=== PATIENT | male | born 1960 | race African-American/Black ===

== ENCOUNTER 2016-09-29 13:45 | Inpatient (IN) | payer OTHER ==
[2016-09-29 15:47] VITALS: BMI 23.3
--- NOTE | 2016-09-29 17:45 | HP ---
Admission ROS [facility] Chief Complaint: I WANT TO GO TO REHAB Allergies/Adverse Reactions: Allergies Allergy/AdvReac Type Severity Reaction Status Date / Time No Known Allergies Allergy Verified 09/29/16 17:28 History of Present Illness: 56 YEARS OLD MALE WITH LONG HISTORY OF ALCOHOL COCAINE NICOTINE DEPENDENCE HAS HYPERTENSION AND SCHIZOPHRENIA IS ADMITTED TO REHAB Exam Limitations: No Limitations - Ebola screening Have you traveled outside of the country in the last 21 days: No Have you had contact with anyone from an Ebola affected area: No Have you been sick,other than usual withdrawal symptoms: No Do you have a fever: No - Review of Systems Constitutional: Weight Stable EENT: reports: Dental Problems (MULTIPLE UPPER TEETH MISSING) Respiratory: reports: No Symptoms reported Cardiac: reports: No Symptoms Reported GI: reports: No Symptoms Reported : reports: No Symptoms Reported Musculoskeletal: reports: Back Pain Integumentary: reports: No Symptoms Reported Neuro: reports: No Symptoms reported Endocrine: reports: No Symptoms Reported Hematology: reports: No Symptoms Reported Psychiatric: reports: Judgement Intact, Orientated x3, other (SCHIZOPHRENIA) Other Systems: Reviewed and Negative Patient History - Patient Medical History Hx Anemia: No Hx Asthma: No Hx Chronic Obstructive Pulmonary Disease (COPD): No Hx Cancer: No Hx Cardiac Disorders: No Hx Congestive Heart Failure: No Hx Hypertension: Yes Hx Hypercholesterolemia: No Hx Pacemaker: No HX Cerebrovascular Accident: No Hx Seizures: No Hx Dementia: No Hx Diabetes: No Hx Gastrointestinal Disorders: No Hx Liver Disease: No Hx Genitourinary Disorders: No Hx Sexually Transmitted Disorders: No Hx Renal Disease (ESRD): No Hx Thyroid Disease: No Hx Human Immunodeficiency Virus (HIV): No Hx Hepatitis C: No Hx Depression: No Hx Suicide Attempt: No Hx Bipolar Disorder: No Hx Schizophrenia: Yes - Patient Surgical History Past Surgical History: No - PPD History Previous Implant?: Yes Documented Results: Negative w/o proof Implanted On Prior [facility] Admission?: No PPD to be Administered?: Yes - Smoking Cessation Smoking history: Current every day smoker Have you smoked in the past 12 months: Yes Aproximately how many cigarettes per day: 10 Cigars Per Day: 0 Hx Chewing Tobacco Use: No Initiated information on smoking cessation: Yes 'Breaking Loose' booklet given: 09/29/16 - Substance & Tx. History Hx Alcohol Use: Yes Hx Substance Use: Yes Substance Use Type: Alcohol, Cocaine Hx Substance Use Treatment: No - Substances Abused Alcohol Route: Oral Frequency: Daily Amount used: 40OZ X 1 Age of first use: 15 Date of Last Use: 09/28/16 Cocaine Route: Smoking Frequency: Daily Amount used: 100$ Age of first use: 29 Date of Last Use: 09/27/16 Family Disease History - Family Disease History Family Disease History: Heart Disease: Mother (), Respiratory: Sister ( ), Other: Father (PHONE CNTACT PERIODICALLY), Mother, Brother ( KILLED), Sister Admission Physical Exam [facility] - Vital Signs Vital Signs: Vital Signs - 24 hr 09/29/16 15:29 Temperature 97.4 F L Pulse Rate 78 Respiratory 18 Rate Blood Pressure 118/73 - Physical General Appearance: Yes: No Apparent Distress, Appropriately Dressed, Thin HEENTM: Yes: Hearing grossly Normal, Normal ENT Inspection, Normocephalic, Normal Voice, Other (UPPER TEETH MISSING) Respiratory: Yes: Chest Non-Tender, Lungs Clear, Normal Breath Sounds, No Respiratory Distress, No Accessory Muscle Use Neck: Yes: Supple, Trachea in good position Breast: Yes: Breasts Symetrical Cardiology: Yes: Regular Rhythm, Regular Rate, S1, S2 Abdominal: Yes: Normal Bowel Sounds, Non Tender, Soft Genitourinary: Yes: Within Normal Limits Back: Yes: Normal Inspection Musculoskeletal: Yes: full range of Motion, Gait Steady, Back pain Extremities: Yes: Normal Inspection, Normal Range of Motion, Non-Tender Neurological: Yes: Fully Oriented, Alert, Motor Strength 5/5, Normal Mood/Affect , Normal Response Integumentary: Yes: Warm Lymphatic: Yes: Within Normal Limits - Diagnostic (1) Alcohol dependence with uncomplicated withdrawal Current Visit: Yes Status: Acute (2) Cocaine dependence, uncomplicated Current Visit: Yes Status: Chronic (3) Hypertension Current Visit: Yes Status: Chronic Qualifiers: Hypertension type: essential hypertension Qualified Code(s): I10 - Essential (primary) hypertension (4) Nicotine dependence Current Visit: Yes Status: Acute Qualifiers: Nicotine product type: cigarettes Substance use status: in withdrawal Qualified Code(s): F17.213 - Nicotine dependence, cigarettes, with withdrawal (5) Schizophrenia Current Visit: Yes Status: Resolved Qualifiers: Schizophrenia type: other Qualified Code(s): F20.89 - Other schizophrenia; F20.8 - Other schizophrenia Cleared for Admission [facility] - Detox or Rehab [facility] Level of Care: Observation Bed Detox Regimen/Protocol: Not Applicable Claeared for Rehab Admission: Yes [facility] Breath Alcohol Content Breath Alcohol Content: 0 Urine Drug Screen - Results Drug Screen Negative: No Urine Drug Screen Results: CHAYA-Cocaine
[2016-09-29] MEDS ORDERED: MAG HYDROX/AL HYDROX/SIMETH 30 ML UNIT-DOSE CUP PO PRN (17:51)
[2016-09-29] MEDS ORDERED: NICOTINE POLACRILEX 2 MG GUM BC PRN (17:51)
[2016-09-29] MEDS ORDERED: MAGNESIUM HYDROX 2400MG/30ML ORAL SUSPENSION 30 ML CUP PO PRN (17:51)
[2016-09-29] MEDS ORDERED: LOPERAMIDE HCL 2 MG CAPSULE PO PRN (17:51)
[2016-09-29] MEDS ORDERED: P-EPHED 60MG/TRIPROLIDI 2.5MG TABLET PO PRN (17:51)
[2016-09-29] MEDS ORDERED: MAGNESIUM CITRATE 300 ML BOTTLE PO PRN (17:51)
[2016-09-29] MEDS ORDERED: diphenhydrAMINE HCL 50 MG CAPSULE PO PRN (17:51)
[2016-09-29] MEDS ORDERED: MENTHOL/PHENOL 1 EACH UD MM PRN (17:51)
[2016-09-29] MEDS ORDERED: ACETAMINOPHEN 325 MG TABLET (FP) PO PRN (17:51)
[2016-09-29] MEDS ORDERED: hydrOXYzine PAMOATE 50 MG CAPSULE (FP) PO PRN (17:51)
[2016-09-29] MEDS ORDERED: guaiFENesin/D-METHORPHAN HB 10 ML UNIT-DOSE CUPS PO PRN (17:51)
[2016-09-29] MEDS: THIAMINE HCL 100 MG TABLET (FP) PO SCH (21:46)
[2016-09-29] MEDS ORDERED: TUBERCULIN PPD 5 TU/0.1ML VIAL ID ONE (22:21)
[2016-09-29 23:45] LABS: URINE APPEARANCE CLEAR; URINE BILIRUBIN NEGATIVE (NEGATIVE); URINE BLOOD NEGATIVE (NEGATIVE); URINE COLOR LTYELLOW; URINE GLUCOSE (UA) NEGATIVE (NEGATIVE); URINE KETONE NEGATIVE (NEGATIVE); URINE LEUK ESTERASE NEGATIVE (NEGATIVE); URINE NITRITE NEGATIVE (NEGATIVE); URINE PROTEIN NEGATIVE (NEGATIVE); URINE UROBILINOGEN NEGATIVE E.U./dl (0.2-1.0)
--- NOTE | 2016-09-30 08:25 | HP ---
Psychiatrist Admission - Data Date of interview: 09/30/16 Admission source: [facility] Identifying data: This is the first 5N inpatient rehabilitation admission for this 56 year old single male who is domiciled and supported by [facility]. Medical History: hypertension and Hep C. Psychiatric History: Patient is poor historian, he reports history of Schizophrenia, sevarl psychiatric hospitalizations([facility] and [facility] and currently on Cogentin 1 mg po bid, Benadryl 50 mg po hs and Prolixine Decanoate 50 mg IM q 2 weeks, reports he had his injection on10/23 and his next due on 11/06. Physical/Sexual Abuse/Trauma History: Denies Vital Signs: Vital Signs - 24 hr 09/29/16 09/29/16 09/30/16 15:29 20:41 00:50 Temperature 97.4 F L 98.3 F Pulse Rate 78 81 Respiratory 18 18 18 Rate Blood Pressure 118/73 137/91 09/30/16 09/30/16 03:30 07:18 Temperature 98.2 F Pulse Rate 78 Respiratory 18 18 Rate Blood Pressure 134/85 Allergies/Adverse Reactions: Allergies Allergy/AdvReac Type Severity Reaction Status Date / Time No Known Allergies Allergy Verified 09/29/16 17:28 Date of last physical exam: 09/29/16 Concur with the findings of this exam: Yes - Substance Abuse/Tx History Hx Alcohol Use: Yes Hx Substance Use: Yes Substance Use Type: Alcohol (40oz ), Cocaine ($100 daily) Hx Substance Use Treatment: Yes - Admission Criteria Previous failed treatment: Yes Poor recovery environment: Yes Comorbidities: Yes Lacks judgement: Yes Mental Status Exam - Mental Status Exam Alert and Oriented to: Time, Place, Person Cognitive Function: Impaired Patient Appearance: Well Groomed Mood: Apathetic Affect: Mood Congruent Patient Behavior: Cooperative Speech Pattern: Appropriate Thought Process: Goal Oriented Thought Disorder: Not Present Hallucinations: Denies Suicidal Ideation: Denies Homicidal Ideation: Denies Insight/Judgement: Fair Sleep: Fair Appetite: Fair Muscle strength/Tone: Normal Gait/Station: Normal Psychiatric Findings - Problem List ([place] 1, 2,3) (1) Nicotine dependence Current Visit: Yes Status: Acute Qualifiers: Nicotine product type: cigarettes Substance use status: in withdrawal Qualified Code(s): F17.213 - Nicotine dependence, cigarettes, with withdrawal (2) Cocaine dependence, uncomplicated Current Visit: Yes Status: Chronic (3) Hypertension Current Visit: Yes Status: Chronic Qualifiers: Hypertension type: essential hypertension Qualified Code(s): I10 - Essential (primary) hypertension (4) Schizophrenia Current Visit: Yes Status: Chronic Qualifiers: Schizophrenia type: other Qualified Code(s): F20.89 - Other schizophrenia; F20.8 - Other schizophrenia (5) Alcohol dependence Current Visit: Yes Status: Acute - Initial Treatment Plan Initial Treatment Plan: Will continue current medications, monitor progress as needed.
[2016-09-30 09:57] LABS: MCH 30.4 pg (25.7-33.7); MCHC 33.5 g/dl (32.0-35.9); MEAN CELL VOLUME 90.8 fl (80-96); MEAN PLT VOLUME 8.2 fl (7.5-11.1); PLATELET COUNT 184 K/MM3 (134-434); WHITE BLOOD COUNT 4.6 K/mm3 (4.0-10.0)
[2016-09-30 10:01] LABS: SGOT/AST 18 U/L (15-37); SGPT/ALT 18 U/L (12-78)
[2016-09-30 10:04] LABS: ALBUMIN 3.4 g/dl (3.4-5.0); ALK PHOS 117 U/L (45-117); ANION GAP 7 (8-16); BILIRUBIN,TOTAL 0.2 mg/dL (0.2-1.0); CO2 28 mmol/L (21-32); COCKROFT - GAULT 84.24; CREATININE 0.9 mg/dL (0.7-1.3); GLUCOSE,RANDOM 86 mg/dL (74-106); TOT PROT 6.1 g/dl (6.4-8.2)
--- NOTE | 2016-09-30 10:04 | EKG ---
Test Reason : Blood Pressure : / mmHG Vent. Rate : 078 BPM Atrial Rate : 078 BPM P-R Int : 168 ms QRS Dur : 076 ms QT Int : 364 ms P-R-T Axes : 078 075 069 degrees QTc Int : 414 ms NORMAL SINUS RHYTHM NORMAL ECG NO PREVIOUS ECGS AVAILABLE Confirmed by VALERIE HAYNES MD ([id number]) on 09/30/2016 10:03:55 AM Referred By: Eda Buchanan Confirmed By:VALERIE HAYNES MD
[2016-09-30] MEDS: PRENATAL VITAMINS W/ FOLIC ACID TABLET (FP) PO SCH (10:22)
[2016-09-30] MEDS: amLODIPine BESYLATE 10 MG TABLET (FP) PO SCH (10:22)
[2016-09-30] MEDS: VALSARTAN 160 MG TABLET (UD) PO SCH (10:22)
[2016-09-30] MEDS: NICOTINE 14 MG/24 HOURS TOPICAL PATCH TD SCH (10:22)
[2016-09-30 11:01] LABS: HIV 1 & 2 AB NEGATIVE; HIV 1 AGp24 NEGATIVE
[2016-09-30] MEDS ORDERED: BENZTROPINE MESYLATE 1 MG TABLET (FP) PO ONE (14:45)
[2016-09-30] MEDS: THIAMINE HCL 100 MG TABLET (FP) PO SCH (21:55)
[2016-09-30] MEDS: BENZTROPINE MESYLATE 1 MG TABLET (FP) PO SCH (21:55)
[2016-09-30] MEDS: diphenhydrAMINE HCL 50 MG CAPSULE PO SCH (21:55)
[2016-10-01] MEDS: NICOTINE 14 MG/24 HOURS TOPICAL PATCH TD SCH (10:25)
[2016-10-01] MEDS: amLODIPine BESYLATE 10 MG TABLET (FP) PO SCH (10:25)
[2016-10-01] MEDS: PRENATAL VITAMINS W/ FOLIC ACID TABLET (FP) PO SCH (10:25)
[2016-10-01] MEDS: BENZTROPINE MESYLATE 1 MG TABLET (FP) PO SCH ×2 (10:25→21:42)
[2016-10-01] MEDS: VALSARTAN 160 MG TABLET (UD) PO SCH (10:27)
[2016-10-01] MEDS: THIAMINE HCL 100 MG TABLET (FP) PO SCH (21:42)
[2016-10-01] MEDS: diphenhydrAMINE HCL 50 MG CAPSULE PO SCH (21:42)
[2016-10-02] MEDS: PRENATAL VITAMINS W/ FOLIC ACID TABLET (FP) PO SCH (10:29)
[2016-10-02] MEDS: BENZTROPINE MESYLATE 1 MG TABLET (FP) PO SCH ×2 (10:29→21:30)
[2016-10-02] MEDS: NICOTINE 14 MG/24 HOURS TOPICAL PATCH TD SCH (10:30)
[2016-10-02] MEDS: amLODIPine BESYLATE 10 MG TABLET (FP) PO SCH (10:30)
[2016-10-02] MEDS: VALSARTAN 160 MG TABLET (UD) PO SCH (10:30)
[2016-10-02] MEDS: diphenhydrAMINE HCL 50 MG CAPSULE PO SCH (21:30)
[2016-10-02] MEDS: THIAMINE HCL 100 MG TABLET (FP) PO SCH (21:30)
[2016-10-03] MEDS: amLODIPine BESYLATE 10 MG TABLET (FP) PO SCH (10:31)
[2016-10-03] MEDS: BENZTROPINE MESYLATE 1 MG TABLET (FP) PO SCH ×2 (10:31→21:58)
[2016-10-03] MEDS: VALSARTAN 160 MG TABLET (UD) PO SCH (10:31)
[2016-10-03] MEDS: PRENATAL VITAMINS W/ FOLIC ACID TABLET (FP) PO SCH (10:31)
[2016-10-03] MEDS: NICOTINE 14 MG/24 HOURS TOPICAL PATCH TD SCH (10:31)
[2016-10-03] MEDS: THIAMINE HCL 100 MG TABLET (FP) PO SCH (21:58)
[2016-10-03] MEDS: diphenhydrAMINE HCL 50 MG CAPSULE PO SCH (21:58)
--- NOTE | 2016-10-04 09:42 | PN ---
[facility] Progress Note Note: Steffen Kolb nurse from [facility]([phone]) called and verified that patient's Prolixin Decan. 50 mg q 2 weeks, and due date for injection is 10/07/16.
[2016-10-04] MEDS: VALSARTAN 160 MG TABLET (UD) PO SCH (10:35)
[2016-10-04] MEDS: amLODIPine BESYLATE 10 MG TABLET (FP) PO SCH (10:35)
[2016-10-04] MEDS: PRENATAL VITAMINS W/ FOLIC ACID TABLET (FP) PO SCH (10:35)
[2016-10-04] MEDS: BENZTROPINE MESYLATE 1 MG TABLET (FP) PO SCH ×2 (10:35→21:41)
[2016-10-04] MEDS: NICOTINE 14 MG/24 HOURS TOPICAL PATCH TD SCH (10:36)
[2016-10-04] MEDS: THIAMINE HCL 100 MG TABLET (FP) PO SCH (21:41)
[2016-10-04] MEDS: diphenhydrAMINE HCL 50 MG CAPSULE PO SCH (21:41)
[2016-10-05] MEDS: BENZTROPINE MESYLATE 1 MG TABLET (FP) PO SCH ×2 (10:36→22:00)
[2016-10-05] MEDS: NICOTINE 14 MG/24 HOURS TOPICAL PATCH TD SCH (10:36)
[2016-10-05] MEDS: amLODIPine BESYLATE 10 MG TABLET (FP) PO SCH (10:37)
[2016-10-05] MEDS: VALSARTAN 160 MG TABLET (UD) PO SCH (10:37)
[2016-10-05] MEDS: PRENATAL VITAMINS W/ FOLIC ACID TABLET (FP) PO SCH (10:37)
[2016-10-05] MEDS: THIAMINE HCL 100 MG TABLET (FP) PO SCH (21:59)
[2016-10-05] MEDS: diphenhydrAMINE HCL 50 MG CAPSULE PO SCH (22:00)
[2016-10-06] MEDS: BENZTROPINE MESYLATE 1 MG TABLET (FP) PO SCH ×2 (10:45→22:02)
[2016-10-06] MEDS: amLODIPine BESYLATE 10 MG TABLET (FP) PO SCH (10:45)
[2016-10-06] MEDS: VALSARTAN 160 MG TABLET (UD) PO SCH (10:45)
[2016-10-06] MEDS: PRENATAL VITAMINS W/ FOLIC ACID TABLET (FP) PO SCH (10:45)
[2016-10-06] MEDS: IBUPROFEN 400 MG TABLET (FP) PO PRN ×2 (10:46→22:02)
[2016-10-06] MEDS: NICOTINE 14 MG/24 HOURS TOPICAL PATCH TD SCH (10:48)
--- NOTE | 2016-10-06 13:45 | PN ---
[facility] Progress Note Note: PAIN IN THE LEFT ELBOW ,SLEPT LEFT ELBOW LAST NIGHT,MOVEMENT LEFT ELBOW NO LIMITATION, MOTRIN 400 MGS PO Q 6HRS PRN FORPAIN,OBSERVATION
[2016-10-06] MEDS: THIAMINE HCL 100 MG TABLET (FP) PO SCH (22:02)
[2016-10-06] MEDS: diphenhydrAMINE HCL 50 MG CAPSULE PO SCH (22:02)
[2016-10-07] MEDS ORDERED: fluPHENAZine DECANOATE 125 MG/5ML VIAL IM ONE (10:00)
[2016-10-07] MEDS: VALSARTAN 160 MG TABLET (UD) PO SCH (10:25)
[2016-10-07] MEDS: PRENATAL VITAMINS W/ FOLIC ACID TABLET (FP) PO SCH (10:26)
[2016-10-07] MEDS: amLODIPine BESYLATE 10 MG TABLET (FP) PO SCH (10:26)
[2016-10-07] MEDS: BENZTROPINE MESYLATE 1 MG TABLET (FP) PO SCH ×2 (10:26→21:58)
[2016-10-07] MEDS: NICOTINE 14 MG/24 HOURS TOPICAL PATCH TD SCH (10:26)
[2016-10-07] MEDS: diphenhydrAMINE HCL 50 MG CAPSULE PO SCH (21:57)
[2016-10-07] MEDS: THIAMINE HCL 100 MG TABLET (FP) PO SCH (21:57)
[2016-10-07] MEDS: IBUPROFEN 400 MG TABLET (FP) PO PRN (21:59)
[2016-10-08] MEDS: PRENATAL VITAMINS W/ FOLIC ACID TABLET (FP) PO SCH (10:07)
[2016-10-08] MEDS: NICOTINE 14 MG/24 HOURS TOPICAL PATCH TD SCH (10:07)
[2016-10-08] MEDS: VALSARTAN 160 MG TABLET (UD) PO SCH (10:07)
[2016-10-08] MEDS: amLODIPine BESYLATE 10 MG TABLET (FP) PO SCH (10:07)
[2016-10-08] MEDS: BENZTROPINE MESYLATE 1 MG TABLET (FP) PO SCH ×2 (10:08→22:14)
[2016-10-08] MEDS: diphenhydrAMINE HCL 50 MG CAPSULE PO SCH (22:13)
[2016-10-08] MEDS: THIAMINE HCL 100 MG TABLET (FP) PO SCH (22:13)
[2016-10-08] MEDS: IBUPROFEN 400 MG TABLET (FP) PO PRN (22:15)
[2016-10-09] MEDS: amLODIPine BESYLATE 10 MG TABLET (FP) PO SCH (10:37)
[2016-10-09] MEDS: PRENATAL VITAMINS W/ FOLIC ACID TABLET (FP) PO SCH (10:37)
[2016-10-09] MEDS: VALSARTAN 160 MG TABLET (UD) PO SCH (10:37)
[2016-10-09] MEDS: BENZTROPINE MESYLATE 1 MG TABLET (FP) PO SCH ×2 (10:38→22:08)
[2016-10-09] MEDS: NICOTINE 14 MG/24 HOURS TOPICAL PATCH TD SCH (10:38)
[2016-10-09] MEDS: diphenhydrAMINE HCL 50 MG CAPSULE PO SCH (22:07)
[2016-10-09] MEDS: THIAMINE HCL 100 MG TABLET (FP) PO SCH (22:07)
[2016-10-10 06:52] VITALS: BP 129/83; PULSE 84; TEMP 98.2
[2016-10-10] MEDS: amLODIPine BESYLATE 10 MG TABLET (FP) PO SCH (10:13)
[2016-10-10] MEDS: BENZTROPINE MESYLATE 1 MG TABLET (FP) PO SCH (10:14)
[2016-10-10] MEDS: VALSARTAN 160 MG TABLET (UD) PO SCH (10:14)
[2016-10-10] MEDS: NICOTINE 14 MG/24 HOURS TOPICAL PATCH TD SCH (10:14)
[2016-10-10] MEDS: PRENATAL VITAMINS W/ FOLIC ACID TABLET (FP) PO SCH (10:17)
--- NOTE | 2016-10-10 14:23 | PN ---
Psychiatric Progress Note Vital Signs: Vital Signs Period Temp Pulse Resp BP Sys/Davis Pulse Ox Last 24 Hr 98.2 F 84 16-18 129/83 Date of Session: 10/10/16 Chief Complaint:: discharge visit HPI: patient has address alcohol, cocaine, nicotine dependence comorbid schizophrenia ROS: WNL Current Side Effect: No Lab tests ordered: No Lab tests reviewed: Yes Provider note:: Patient has completed today his treatment and met his goals, will continue to address his issues at [facility] treatment program, patient gained insights into his addictions, learned the importantance of changing attitude for the utilization of supports available as well as ways to improve coping skills to prevent relapses. Patient reports feeling well, he will continue his psychiatric care at [facility], scripts provded for 30 days supply, patient made aware that his next prolixin decanoate injection is due on 10/21/16, patient i is stable for discharge today. Total face to face time:: 35 Mental Status Exam - Mental Status Exam Alert and Oriented to: Time, Place, Person Cognitive Function: Good Patient Appearance: Well Groomed Mood: Hopeful Affect: Appropriate, Mood Congruent Patient Behavior: Appropriate, Cooperative Speech Pattern: Clear, Appropriate Voice Loudness: Normal Thought Process: Intact, Goal Oriented Thought Disorder: Not Present Hallucinations: Denies Suicidal Ideation: Denies Homicidal Ideation: Denies Insight/Judgement: Fair Sleep: Fair Appetite: Fair Muscle strength/Tone: Normal Gait/Station: Normal Psychiatric Treatment Plan - Problem List (1) Nicotine dependence Qualifiers: Nicotine product type: cigarettes Substance use status: in withdrawal Qualified Code(s): F17.213 - Nicotine dependence, cigarettes, with withdrawal (3) Hypertension Qualifiers: Hypertension type: essential hypertension Qualified Code(s): I10 - Essential (primary) hypertension (4) Schizophrenia Qualifiers: Schizophrenia type: other Qualified Code(s): F20.89 - Other schizophrenia; F20.8 - Other schizophrenia
== END 2016-10-10 10:50 | disposition home or self-care (01) | DRG 772 ==
LOC: YASAS 13:45 → Y5N 17:44
PROVIDERS: ADMIT Psychiatry & Neurology Psychiatry; ATTEND Psychiatry & Neurology Psychiatry
PROC: HZ42ZZZ Group Counseling for Substance Abuse Treatment, Cognitive-Behavioral (ICD-10-PCS; principal; 2016-09-29)
DX: F10.20 Alcohol dependence, uncomplicated (principal); F14.20 Cocaine dependence, uncomplicated; F17.210 Nicotine dependence, cigarettes, uncomplicated; F20.89 Other schizophrenia; I10 Essential (primary) hypertension; M25.522 Pain in left elbow
CPT/HCPCS: 36415; 80053; 81003; 85027; 86593; 87389; 93005; 93010

== ENCOUNTER 2017-02-06 14:29 | Inpatient (IN) | payer OTHER ==
[2017-02-06 19:00] VITALS: BMI 22.6
--- NOTE | 2017-02-06 21:23 | HP ---
CIWA Score - CIWA Score Nausea/Vomitin-No Nausea/No Vomiting Muscle Tremors: 3 Anxiety: 3 Agitation: 4-Moderately Restless Paroxysmal Sweats: 1-Minimal Palms Moist Orientation: 1-Uncertain about Date Tacttile Disturbances: 1-Very Mild Itch/Numbness Auditory Disturbances: 0-None Visual Disturbances: 0-None Headache: 2-Mild CIWA-Ar Total Score: 15 Admission ROS [facility] - HPI Chief Complaint: Alcohol withdrawal Allergies/Adverse Reactions: Allergies Allergy/AdvReac Type Severity Reaction Status Date / Time No Known Allergies Allergy Verified 02/06/17 21:21 History of Present Illness: 56 years old male with a long hx of alcohol dependence admitted for detox. Patient has been in previous detox. Denies significant sobriety. Exam Limitations: No Limitations - Ebola screening Have you traveled outside of the country in the last 21 days: No Have you had contact with anyone from an Ebola affected area: No Have you been sick,other than usual withdrawal symptoms: No Do you have a fever: No - Review of Systems Constitutional: No Symptoms Reported, Changes in sleep, Weakness EENT: reports: No Symptoms Reported Respiratory: reports: No Symptoms reported Cardiac: reports: No Symptoms Reported GI: reports: Abdominal cramping : reports: No Symptoms Reported Musculoskeletal: reports: No Symptoms Reported, Joint Pain (LEFT KNEE) Integumentary: reports: Dryness Neuro: reports: Headache Hematology: reports: No Symptoms Reported Psychiatric: reports: Mood/Affect Appropiate, Orientated x3, Anxious Other Systems: Reviewed and Negative Patient History - Patient Medical History Hx Anemia: No Hx Asthma: No Hx Chronic Obstructive Pulmonary Disease (COPD): No Hx Cancer: No Hx Cardiac Disorders: No Hx Congestive Heart Failure: No Hx Hypertension: Yes Hx Hypercholesterolemia: No Hx Pacemaker: No HX Cerebrovascular Accident: No Hx Seizures: No Hx Dementia: No Hx Diabetes: No Hx Gastrointestinal Disorders: No Hx Liver Disease: No Hx Genitourinary Disorders: No Hx Sexually Transmitted Disorders: No Hx Renal Disease (ESRD): No Hx Thyroid Disease: No Hx Human Immunodeficiency Virus (HIV): No Hx Hepatitis C: No Hx Depression: No Hx Suicide Attempt: No Hx Bipolar Disorder: No Hx Schizophrenia: Yes - Patient Surgical History Past Surgical History: No - PPD History Previous Implant?: No Implanted On Prior [facility] Admission?: No PPD to be Administered?: Yes - Smoking Cessation Smoking history: Current every day smoker Have you smoked in the past 12 months: Yes Aproximately how many cigarettes per day: 10 Cigars Per Day: 0 Hx Chewing Tobacco Use: No Initiated information on smoking cessation: Yes 'Breaking Loose' booklet given: 02/06/17 - Substance & Tx. History Hx Alcohol Use: Yes Hx Substance Use: Yes Substance Use Type: Alcohol, Cocaine Hx Substance Use Treatment: Yes - Substances Abused Alcohol Route: Oral Frequency: Daily Amount used: beer- 2 (20oz) Age of first use: 19 Date of Last Use: 02/05/17 Family Disease History - Family Disease History Family Disease History: Heart Disease: Mother (), Respiratory: Sister ( ), Other: Father (PHONE CONTACT PERIODICALLY), Mother, Brother ( , KILLED), Sister Admission Physical Exam [facility] - Vital Signs Vital Signs: Vital Signs - 24 hr 02/06/17 18:55 Temperature 98.7 F Pulse Rate 90 Respiratory 20 Rate Blood Pressure 118/70 - Physical General Appearance: Yes: Within Normal Limits, Mild Distress HEENTM: Yes: Normal ENT Inspection, Normal Voice, ANDRÉS Respiratory: Yes: Lungs Clear, Normal Breath Sounds, No Respiratory Distress Neck: Yes: Within Normal Limits Breast: Yes: Breast Exam Deferred Cardiology: Yes: Regular Rhythm, Regular Rate, S1, S2 Abdominal: Yes: Within Normal Limits, Soft Genitourinary: Yes: Within Normal Limits Back: Yes: Within Normal Limits Extremities: Yes: Normal Inspection, Tremors Neurological: Yes: Fully Oriented, Alert, Normal Response Integumentary: Yes: Dry Lymphatic: Yes: Within Normal Limits Cleared for Admission [facility] - Detox or Rehab [facility] Level of Care: Medically Managed [facility] Breath Alcohol Content Breath Alcohol Content: 0 Urine Drug Screen - Results Drug Screen Negative: No Urine Drug Screen Results: CHAYA-Cocaine, TCA-Tricyclic Antidepress
[2017-02-06] MEDS ORDERED: ACETAMINOPHEN 325 MG TABLET (FP) PO PRN (22:42)
[2017-02-06] MEDS ORDERED: P-EPHED 60MG/TRIPROLIDI 2.5MG TABLET PO PRN (22:43)
[2017-02-06] MEDS ORDERED: chlordiazePOXIDE HCL 25 MG CAPSULE PO PRN ×2 (22:43→23:27)
[2017-02-06] MEDS ORDERED: diphenhydrAMINE HCL 50 MG CAPSULE PO PRN (22:45)
[2017-02-06] MEDS ORDERED: IBUPROFEN 400 MG TABLET (FP) PO PRN (22:46)
[2017-02-06] MEDS ORDERED: LOPERAMIDE HCL 2 MG CAPSULE PO PRN (22:46)
[2017-02-06] MEDS ORDERED: MAGNESIUM CITRATE 300 ML BOTTLE PO PRN (22:46)
[2017-02-06] MEDS ORDERED: guaiFENesin/D-METHORPHAN HB 10 ML UNIT-DOSE CUPS PO PRN (22:46)
[2017-02-06] MEDS ORDERED: MAG HYDROX/AL HYDROX/SIMETH 30 ML UNIT-DOSE CUP PO PRN (22:46)
[2017-02-06] MEDS ORDERED: MENTHOL/PHENOL 1 EACH UD MM PRN (22:47)
[2017-02-06] MEDS ORDERED: MAGNESIUM HYDROX 2400MG/30ML ORAL SUSPENSION 30 ML CUP PO PRN (22:47)
[2017-02-06] MEDS ORDERED: NICOTINE POLACRILEX 2 MG GUM BUC PRN (22:48)
[2017-02-06] MEDS ORDERED: chlordiazePOXIDE HCL 25 MG CAPSULE PO SCH ×2 (23:00)
[2017-02-06] MEDS ORDERED: chlordiazePOXIDE 5 MG CAPSULE PO SCH (23:00)
[2017-02-06] MEDS: chlordiazePOXIDE HCL 25 MG CAPSULE PO SCH (23:34)
[2017-02-07] MEDS: chlordiazePOXIDE HCL 25 MG CAPSULE PO SCH ×4 (05:11→22:06)
[2017-02-07 09:55] LABS: MCH 30.4 pg (25.7-33.7); MCHC 33.4 g/dl (32.0-35.9); MEAN CELL VOLUME 90.8 fl (80-96); MEAN PLT VOLUME 7.8 fl (7.5-11.1); PLATELET COUNT 191 K/MM3 (134-434); RDW 14.4 % (11.9-15.9)
[2017-02-07] MEDS: PRENATAL VITAMINS W/ FOLIC ACID TABLET (FP) PO SCH (10:04)
[2017-02-07] MEDS: amLODIPine BESYLATE 10 MG TABLET (FP) PO SCH (10:04)
[2017-02-07] MEDS: VALSARTAN 160 MG TABLET (UD) PO SCH (10:04)
[2017-02-07] MEDS: NICOTINE 14 MG/24 HOURS TOPICAL PATCH TD SCH (10:06)
[2017-02-07 10:12] LABS: ALBUMIN 3.2 g/dl (3.4-5.0); ALK PHOS 90 U/L (45-117); ANION GAP 8 (8-16); BILIRUBIN,TOTAL 0.4 mg/dL (0.2-1.0); CO2 28 mmol/L (21-32); CREATININE 1.1 mg/dL (0.7-1.3); GLUCOSE,RANDOM 77 mg/dL (74-106); SGOT/AST 10 U/L (15-37); SGPT/ALT 16 U/L (12-78); TOT PROT 5.7 g/dl (6.4-8.2)
--- NOTE | 2017-02-07 10:16 | PN ---
S CIWA - CIWA Score Nausea/Vomitin Muscle Tremors: 3 Anxiety: 3 Agitation: 2 Paroxysmal Sweats: 1-Minimal Palms Moist Orientation: 0-Oriented Tacttile Disturbances: 1-Very Mild Itch/Numbness Auditory Disturbances: 1-Very Mild Visual Disturbances: 0-None Headache: 2-Mild CIWA-Ar Total Score: 16 [facility] Progress Note (SOAP) Subjective: alert,irritable,anxious,interrupted sleep,tremor Objective: 02/07/17 10:14 Vital Signs Temperature 97.0 F L 02/07/17 10:09 Pulse Rate 66 02/07/17 10:09 Respiratory Rate 18 02/07/17 10:09 Blood Pressure 128/70 02/07/17 10:09 O2 Sat by Pulse Oximetry (%) ekg nsr,normal ecg Laboratory Last Values WBC 4.0 K/mm3 (4.0-10.0) 02/07/17 07:00 RBC 4.19 M/mm3 (4.00-5.60) 02/07/17 07:00 Hgb 12.7 GM/dL (11.7-16.9) 02/07/17 07:00 Hct 38.0 % (35.4-49) 02/07/17 07:00 MCV 90.8 fl (80-96) 02/07/17 07:00 MCH 30.4 pg (25.7-33.7) 02/07/17 07:00 MCHC 33.4 g/dl (32.0-35.9) 02/07/17 07:00 RDW 14.4 % (11.9-15.9) 02/07/17 07:00 Plt Count 191 K/MM3 (134-434) 02/07/17 07:00 MPV 7.8 fl (7.5-11.1) 02/07/17 07:00 labs pending Assessment: 02/07/17 10:15 withdrawal symptom Plan: continue detox
[2017-02-07] MEDS: THIAMINE HCL 100 MG TABLET (FP) PO SCH (22:06)
[2017-02-07] MEDS ORDERED: chlordiazePOXIDE HCL 25 MG CAPSULE PO SCH (23:00)
[2017-02-08] MEDS: chlordiazePOXIDE HCL 25 MG CAPSULE PO SCH ×3 (05:04→17:23)
--- NOTE | 2017-02-08 09:31 | CONSULT ---
[facility] Psychiatric Consult - Data Date of interview: 02/08/17 Admission source: [facility] Identifying data: This is 56 years old male with history of Schizphrenia, history of psychiatric hospitalizations, intoxicated with Cocaine, Alcohol and Nicotine Substance Abuse History: - Smoking Cessation. Smoking history: Current every day smoker. Have you smoked in the past 12 months: Yes. Aproximately how many cigarettes per day: 10. Cigars Per Day: 0. Hx Chewing Tobacco Use: No. Initiated information on smoking cessation: Yes. 'Breaking Loose' booklet given : 02/06/17. - Substance & Tx. History. Hx Alcohol Use: Yes. Hx Substance Use : Yes. Substance Use Type: Alcohol, Cocaine. Hx Substance Use Treatment: Yes. - Substances Abused. Alcohol. Route: Oral. Frequency: Daily. Amount used: beer- 2 (20oz). Age of first use: 19. Date of Last Use: 02/05/17 Medical History: Denies any significant medical issue Psychiatric History: Patient [id number] history od Schizophrenia with mo9st recent p[sychiatgric admission on about 7-8 years ago at [facility], reports taking currently Prolixin 50mg IM for 2 weeks with last injection on 04/09, and Benadryl 50mg po bid Physical/Sexual Abuse/Trauma History: Denies Additional Comment: Prolixin 50mg IM for 2 weeks with last injection on 02/02/17 ,. Benadryl 50mg po bid Mental Status Exam - Mental Status Exam Alert and Oriented to: Person Cognitive Function: Fair Patient Appearance: Unkempt Mood: Suspicious Affect: Constricted Patient Behavior: Cooperative Speech Pattern: Delayed Voice Loudness: Normal Thought Process: Circumstantial Thought Disorder: Being Controlled Hallucinations: Denies Suicidal Ideation: Denies Homicidal Ideation: Denies Insight/Judgement: Fair Sleep: Difficulty falling asleep Appetite: Weight loss Muscle strength/Tone: Normal Gait/Station: Normal Additional Comments: Prolixin 50mg IM for 2 weeks with last injection on ,. Benadryl 50mg po bid Psychiatric Findings - Problem List ([place] 1, 2,3) (1) Alcohol dependence with uncomplicated withdrawal Current Visit: Yes Status: Acute (2) Cocaine dependence, uncomplicated Current Visit: Yes Status: Acute (3) Nicotine dependence Current Visit: Yes Status: Acute Qualifiers: Nicotine product type: cigarettes Substance use status: in withdrawal Qualified Code(s): F17.213 - Nicotine dependence, cigarettes, with withdrawal; F17.213 - Nicotine dependence, cigarettes, with withdrawal (4) Schizophrenia Current Visit: No Status: Chronic Qualifiers: Schizophrenia type: other Qualified Code(s): F20.89 - Other schizophrenia; F20.89 - Other schizophrenia; F20.89 - Other schizophrenia; F20.89 - Other schizophrenia; F20.8 - Other schizophrenia - Initial Treatment Plan Initial Treatment Plan: Prolixin 50mg IM for 2 weeks with last injection on 04/09,. Benadryl 50mg po bid
[2017-02-08] MEDS: PRENATAL VITAMINS W/ FOLIC ACID TABLET (FP) PO SCH (10:16)
[2017-02-08] MEDS: VALSARTAN 160 MG TABLET (UD) PO SCH (10:16)
[2017-02-08] MEDS: NICOTINE 14 MG/24 HOURS TOPICAL PATCH TD SCH (10:16)
[2017-02-08] MEDS: amLODIPine BESYLATE 10 MG TABLET (FP) PO SCH (10:16)
--- NOTE | 2017-02-08 10:24 | PN ---
S CIWA - CIWA Score Nausea/Vomitin Muscle Tremors: 3 Anxiety: 3 Agitation: 2 Paroxysmal Sweats: 1-Minimal Palms Moist Orientation: 0-Oriented Tacttile Disturbances: 1-Very Mild Itch/Numbness Auditory Disturbances: 1-Very Mild Visual Disturbances: 0-None Headache: 2-Mild CIWA-Ar Total Score: 16 [facility] Progress Note (SOAP) Subjective: alert,irritable,anxious,interrupted sleep,tremor Objective: 02/08/17 10:22 Vital Signs Temperature 97.2 F L 02/08/17 06:18 Pulse Rate 65 02/08/17 06:18 Respiratory Rate 18 02/08/17 06:18 Blood Pressure 128/77 02/08/17 06:18 O2 Sat by Pulse Oximetry (%) Laboratory Last Values WBC 4.0 K/mm3 (4.0-10.0) 02/07/17 07:00 RBC 4.19 M/mm3 (4.00-5.60) 02/07/17 07:00 Hgb 12.7 GM/dL (11.7-16.9) 02/07/17 07:00 Hct 38.0 % (35.4-49) 02/07/17 07:00 MCV 90.8 fl (80-96) 02/07/17 07:00 MCH 30.4 pg (25.7-33.7) 02/07/17 07:00 MCHC 33.4 g/dl (32.0-35.9) 02/07/17 07:00 RDW 14.4 % (11.9-15.9) 02/07/17 07:00 Plt Count 191 K/MM3 (134-434) 02/07/17 07:00 MPV 7.8 fl (7.5-11.1) 02/07/17 07:00 Sodium 144 mmol/L (136-145) 02/07/17 07:00 Potassium 3.9 mmol/L (3.5-5.1) 02/07/17 07:00 Chloride 108 mmol/L (98-107) H 02/07/17 07:00 Carbon Dioxide 28 mmol/L (21-32) 02/07/17 07:00 Anion Gap 8 (8-16) 02/07/17 07:00 BUN 19 mg/dL (7-18) H D 02/07/17 07:00 Creatinine 1.1 mg/dL (0.7-1.3) D 02/07/17 07:00 Creat Clearance w eGFR > 60 (>60) 02/07/17 07:00 Random Glucose 77 mg/dL (74-106) 02/07/17 07:00 Calcium 8.0 mg/dL (8.5-10.1) L 02/07/17 07:00 Total Bilirubin 0.4 mg/dL (0.2-1.0) D 02/07/17 07:00 AST 10 U/L (15-37) L D 02/07/17 07:00 ALT 16 U/L (12-78) 02/07/17 07:00 Alkaline Phosphatase 90 U/L (45-117) D 02/07/17 07:00 Total Protein 5.7 g/dl (6.4-8.2) L 02/07/17 07:00 Albumin 3.2 g/dl (3.4-5.0) L 02/07/17 07:00 RPR Titer Nonreactive (NONREACTIVE) 02/07/17 07:00 Assessment: 02/08/17 10:23 withdrawal symptom Plan: continue detox
[2017-02-08] MEDS: diphenhydrAMINE HCL 50 MG CAPSULE PO SCH ×2 (10:52→22:13)
[2017-02-08 16:48] LABS: URINE APPEARANCE SLCLOUDY; URINE BILIRUBIN NEGATIVE (NEGATIVE); URINE BLOOD NEGATIVE (NEGATIVE); URINE COLOR YELLOW; URINE GLUCOSE (UA) NEGATIVE (NEGATIVE); URINE KETONE NEGATIVE (NEGATIVE); URINE NITRITE NEGATIVE (NEGATIVE); URINE PROTEIN NEGATIVE (NEGATIVE); URINE UROBILINOGEN NEGATIVE mg/dL (0.2-1.0)
[2017-02-08 19:38] LABS: URINE LEUK ESTERASE Negative (NEGATIVE)
[2017-02-08] MEDS: chlordiazePOXIDE 5 MG CAPSULE PO SCH (22:13)
[2017-02-08] MEDS: THIAMINE HCL 100 MG TABLET (FP) PO SCH (22:13)
[2017-02-09] MEDS: chlordiazePOXIDE 5 MG CAPSULE PO SCH ×3 (05:05→17:39)
[2017-02-09] MEDS ORDERED: diphenhydrAMINE HCL 25 MG CAPSULE (FP) PO ONE ×2 (09:01→20:54)
--- NOTE | 2017-02-09 09:09 | PN ---
S Progress Note (SOAP) Subjective: alert,irritable,anxious,interrupted sleep Objective: 02/09/17 09:07 Vital Signs Temperature 98.1 F 02/09/17 06:27 Pulse Rate 63 02/09/17 06:27 Respiratory Rate 18 02/09/17 06:27 Blood Pressure 109/73 02/09/17 06:27 O2 Sat by Pulse Oximetry (%) Assessment: 02/09/17 09:08 withdrawal symptom Plan: continue detox,discharge in am
[2017-02-09] MEDS: PRENATAL VITAMINS W/ FOLIC ACID TABLET (FP) PO SCH (10:16)
[2017-02-09] MEDS: NICOTINE 14 MG/24 HOURS TOPICAL PATCH TD SCH (10:17)
[2017-02-09] MEDS: diphenhydrAMINE HCL 50 MG CAPSULE PO SCH ×2 (11:07→22:23)
[2017-02-09] MEDS: amLODIPine BESYLATE 10 MG TABLET (FP) PO SCH (13:34)
[2017-02-09] MEDS: VALSARTAN 160 MG TABLET (UD) PO SCH (13:34)
[2017-02-09] MEDS: THIAMINE HCL 100 MG TABLET (FP) PO SCH (22:23)
[2017-02-09] MEDS: chlordiazePOXIDE HCL 10 MG CAPSULE PO SCH (22:24)
[2017-02-10] MEDS: chlordiazePOXIDE HCL 10 MG CAPSULE PO SCH (05:53)
[2017-02-10 09:55] VITALS: BP 108/74; PULSE 91; TEMP 97.8
[2017-02-10] MEDS: VALSARTAN 160 MG TABLET (UD) PO SCH (10:13)
[2017-02-10] MEDS: PRENATAL VITAMINS W/ FOLIC ACID TABLET (FP) PO SCH (10:13)
[2017-02-10] MEDS: amLODIPine BESYLATE 10 MG TABLET (FP) PO SCH (10:14)
[2017-02-10] MEDS: diphenhydrAMINE HCL 50 MG CAPSULE PO SCH (10:15)
[2017-02-10] MEDS: NICOTINE 14 MG/24 HOURS TOPICAL PATCH TD SCH (10:15)
--- NOTE | 2017-02-10 11:15 | DS ---
[facility] Detox Discharge Summary Admission Date: 02/06/17 Discharge Date: 02/10/17 - History Present History: Alcohol Dependence, Cocaine Dependence - Physical Exam Results Vital Signs: Vital Signs Temperature 97.8 F 02/10/17 09:55 Pulse Rate 91 H 02/10/17 09:55 Respiratory Rate 18 02/10/17 09:55 Blood Pressure 108/74 02/10/17 09:55 O2 Sat by Pulse Oximetry (%) - Treatment Hospital Course: Detox Protocol Followed, Detoxed Safely, Responded well, Discharged Condition Good, Rehab Referral Accepted - Medication Discharge Medications: Ambulatory Orders Benztropine Mesylate [Cogentin -] 1 mg PO BID 09/29/16 Diphenhydramine [Benadryl -] 50 mg PO HS 09/29/16 Fluphenazine Decanoate [Prolixin Decanoate (Long-Acting Injection) -] 50 mg IM ASDIR 09/29/16 Amlodipine Besylate [Norvasc -] 10 mg PO DAILY #30 tab 10/10/16 Valsartan [Diovan] 160 mg PO DAILY #30 tab 10/10/16 - Diagnosis (1) Alcohol dependence with uncomplicated withdrawal Current Visit: Yes Status: Chronic (2) Cocaine dependence, uncomplicated Current Visit: Yes Status: Chronic (3) Nicotine dependence Current Visit: Yes Status: Chronic Qualifiers: Nicotine product type: cigarettes Substance use status: uncomplicated Qualified Code(s): F17.210 - Nicotine dependence, cigarettes, uncomplicated; F17.210 - Nicotine dependence, cigarettes, uncomplicated (4) Hypertension Current Visit: Yes Status: Chronic Qualifiers: Hypertension type: essential hypertension Qualified Code(s): I10 - Essential (primary) hypertension; I10 - Essential (primary) hypertension; I10 - Essential (primary) hypertension (5) Schizophrenia Current Visit: No Status: Chronic Qualifiers: Schizophrenia type: other Qualified Code(s): F20.89 - Other schizophrenia; F20.89 - Other schizophrenia; F20.89 - Other schizophrenia; F20.89 - Other schizophrenia; F20.8 - Other schizophrenia - AMA Did Patient Leave Against Medical Advice: No
== END 2017-02-10 11:25 | disposition home or self-care (01) | DRG 774 ==
LOC: YASAS 14:29 → Y6N 22:20
PROVIDERS: ADMIT Internal Medicine; ATTEND Internal Medicine
PROC: HZ2ZZZZ Detoxification Services for Substance Abuse Treatment (ICD-10-PCS; principal; 2017-02-06)
DX: F10.230 Alcohol dependence with withdrawal, uncomplicated (principal); F14.20 Cocaine dependence, uncomplicated; F17.210 Nicotine dependence, cigarettes, uncomplicated; F20.89 Other schizophrenia; I10 Essential (primary) hypertension
CPT/HCPCS: 36415; 80053; 81003; 85027; 86593; 93005; 93010

== ENCOUNTER 2017-05-05 11:42 | Inpatient (IN) | payer OTHER ==
[2017-05-05 15:08] VITALS: BMI 22.6
--- NOTE | 2017-05-05 16:29 | HP ---
Admission ROS [facility] Chief Complaint: SEEKING REHAB SERVICES. Allergies/Adverse Reactions: Allergies Allergy/AdvReac Type Severity Reaction Status Date / Time No Known Allergies Allergy Verified 05/05/17 16:24 History of Present Illness: 56 Y.O. MAN WITH AN EXTENSIVE HISTORY OF ALCOHOL DEPENDENCE IS HERE SEEKING REHAB. HE WAS LAST HERE IN January, FOR DETOX. DOES NOT HAVE A SIGNIFICANT PERIOD OF SOBRIETY. Exam Limitations: No Limitations - Ebola screening Have you traveled outside of the country in the last 21 days: No (N) Have you had contact with anyone from an Ebola affected area: No Have you been sick,other than usual withdrawal symptoms: No Do you have a fever: No - Review of Systems Constitutional: No Symptoms Reported EENT: reports: Nose Congestion, Dental Problems Respiratory: reports: Cough, Shortness of Breath Cardiac: reports: Lightheadedness GI: reports: No Symptoms Reported : reports: No Symptoms Reported Musculoskeletal: reports: Back Pain Integumentary: reports: No Symptoms Reported Neuro: reports: Headache Endocrine: reports: Intolerance to Cold Hematology: reports: No Symptoms Reported Psychiatric: reports: Judgement Intact, Mood/Affect Appropiate Other Systems: Reviewed and Negative Patient History - Patient Medical History Hx Anemia: No Hx Asthma: No Hx Chronic Obstructive Pulmonary Disease (COPD): No Hx Cancer: No Hx Cardiac Disorders: No Hx Congestive Heart Failure: No Hx Hypertension: Yes Hx Hypercholesterolemia: No Hx Pacemaker: No HX Cerebrovascular Accident: No Hx Seizures: No Hx Dementia: No Hx Diabetes: No Hx Gastrointestinal Disorders: No Hx Liver Disease: No Hx Genitourinary Disorders: No Hx Sexually Transmitted Disorders: No Hx Renal Disease (ESRD): No Hx Thyroid Disease: No Hx Human Immunodeficiency Virus (HIV): No Hx Hepatitis C: Yes (TREATED ) Hx Depression: No Hx Suicide Attempt: No Hx Bipolar Disorder: No Hx Schizophrenia: Yes - Patient Surgical History Past Surgical History: No Hx Neurologic Surgery: No Hx Cataract Extraction: No Hx Cardiac Surgery: No Hx Lung Surgery: No Hx Breast Surgery: No Hx Breast Biopsy: No Hx Abdominal Surgery: No Hx Appendectomy: No Hx Cholecystectomy: No Hx Genitourinary Surgery: No Hx Section: No Hx Orthopedic Surgery: No Anesthesia Reaction: No - PPD History Previous Implant?: Yes Documented Results: Negative w/proof Date: 02/09/17 PPD to be Administered?: No - Reproductive History Patient is a Female of Child Bearing Age (11 -55 yrs old): No - Smoking Cessation Smoking history: Current every day smoker Have you smoked in the past 12 months: Yes Aproximately how many cigarettes per day: 10 Cigars Per Day: 0 Hx Chewing Tobacco Use: No Initiated information on smoking cessation: Yes 'Breaking Loose' booklet given: 05/05/17 - Substance & Tx. History Hx Alcohol Use: Yes Hx Substance Use: Yes Hx Substance Use Treatment: Yes (DETOX: 01/2017; REHAB: 09/2016) - Substances Abused Alcohol Route: Oral Frequency: 1-2 times per week Amount used: 1 beer Age of first use: 15 Date of Last Use: 05/03/17 Family Disease History - Family Disease History Family Disease History: Heart Disease: Mother (), Respiratory: Sister ( ), Other: Father (PHONE CONTACT PERIODICALLY), Mother, Brother ( , KILLED), Sister Admission Physical Exam [facility] - Vital Signs Vital Signs: Vital Signs - 24 hr 05/05/17 15:04 Temperature 98.4 F Pulse Rate 84 Respiratory 18 Rate Blood Pressure 86/66 - Physical General Appearance: Yes: Disheveled, Anxious HEENTM: Yes: Hearing grossly Normal, Normal ENT Inspection, Normocephalic, Other (POOR DENTATION) Respiratory: Yes: Chest Non-Tender, Lungs Clear, Normal Breath Sounds, No Respiratory Distress, No Accessory Muscle Use Neck: Yes: No masses,lesions,Nodules, Trachea in good position Breast: Yes: Breast Exam Deferred Cardiology: Yes: Regular Rhythm, Regular Rate Abdominal: Yes: Normal Bowel Sounds, Non Tender Genitourinary: Yes: Other (NO COMPLAINTS REPORTED) Musculoskeletal: Yes: full range of Motion, Gait Steady Extremities: Yes: Normal Capillary Refill, Normal Inspection, Non-Tender Neurological: Yes: Alert, Normal Mood/Affect, Normal Response Integumentary: Yes: Normal Color, Warm Lymphatic: Yes: Within Normal Limits - Diagnostic (1) Cocaine dependence, uncomplicated Current Visit: Yes Status: Chronic (2) Nicotine dependence Current Visit: Yes Status: Chronic Qualifiers: Nicotine product type: cigarettes Substance use status: in withdrawal Qualified Code(s): F17.213 - Nicotine dependence, cigarettes, with withdrawal (3) Alcohol dependence with uncomplicated withdrawal Current Visit: Yes Status: Chronic (4) BPH (benign prostatic hyperplasia) Current Visit: Yes Status: Chronic Qualifiers: Lower urinary tract symptom presence: symptoms absent Qualified Code(s): N40.0 - Benign prostatic hyperplasia without lower urinary tract symptoms (5) Hypertension Current Visit: Yes Status: Chronic Qualifiers: Hypertension type: essential hypertension Qualified Code(s): I10 - Essential (primary) hypertension Cleared for Admission [facility] - Detox or Rehab [facility] Level of Care: Observation Bed Claeared for Rehab Admission: Yes [facility] Breath Alcohol Content Breath Alcohol Content: 0 Urine Drug Screen - Results Drug Screen Negative: No Urine Drug Screen Results: CHAYA-Cocaine, TCA-Tricyclic Antidepress Inpatient Rehab Admission - Initial Determination Are CD services needed?: Yes Free of communicable disease: Yes Not in need of hospitalization: Yes - Rehab Admission Criteria Previous failed treatment: Yes Poor recovery environment: Yes Comorbidities: Yes Lacks judgement: No Patient is meeting Inpatient Rehab admission criteria:: Yes
[2017-05-05] MEDS ORDERED: P-EPHED 60MG/TRIPROLIDI 2.5MG TABLET PO PRN (16:31)
[2017-05-05] MEDS ORDERED: NICOTINE POLACRILEX 2 MG GUM BUC PRN (16:31)
[2017-05-05] MEDS ORDERED: MAGNESIUM CITRATE 300 ML BOTTLE PO PRN (16:31)
[2017-05-05] MEDS ORDERED: MENTHOL/PHENOL 1 EACH UD MM PRN (16:31)
[2017-05-05] MEDS ORDERED: ACETAMINOPHEN 325 MG TABLET (FP) PO PRN (16:31)
[2017-05-05] MEDS ORDERED: MAGNESIUM HYDROX 2400MG/30ML ORAL SUSPENSION 30 ML CUP PO PRN (16:31)
[2017-05-05] MEDS ORDERED: LOPERAMIDE HCL 2 MG CAPSULE PO PRN (16:31)
[2017-05-05] MEDS ORDERED: hydrOXYzine PAMOATE 50 MG CAPSULE (FP) PO PRN (16:31)
[2017-05-05] MEDS ORDERED: MAG HYDROX/AL HYDROX/SIMETH 30 ML UNIT-DOSE CUP PO PRN (16:31)
[2017-05-05] MEDS ORDERED: diphenhydrAMINE HCL 50 MG CAPSULE PO PRN (16:32)
--- NOTE | 2017-05-05 20:05 | PN ---
[facility] Progress Note Note: Psychiatry Attending's on-call note : Made aware of patient's arrival to unit. Asked to enter orders for cogentin + benadryl. Spoke to patient via telephone.Good historian. Diagnosed with Schizophrenia. Next injection of prolixin Decanoate (50 mg) Due date : 05/12/16.As per patient. Mr Larose confirms maintenance with cogentin and benadryl. Plan : cogentin 1 mg po bid. Benadryl 50 mg po hs Ordered. Side effects/benefits discussed with patient. Consent (verbal) given. Monitor progress.
[2017-05-05] MEDS: BENZTROPINE MESYLATE 1 MG TABLET (FP) PO SCH (21:41)
[2017-05-05] MEDS: THIAMINE HCL 100 MG TABLET (FP) PO SCH (21:41)
[2017-05-05] MEDS: diphenhydrAMINE HCL 25 MG CAPSULE (FP) PO SCH (21:41)
[2017-05-05 23:19] LABS: URINE APPEARANCE CLEAR; URINE BILIRUBIN NEGATIVE (NEGATIVE); URINE BLOOD NEGATIVE (NEGATIVE); URINE COLOR YELLOW; URINE GLUCOSE (UA) NEGATIVE (NEGATIVE); URINE KETONE NEGATIVE (NEGATIVE); URINE LEUK ESTERASE NEGATIVE (NEGATIVE); URINE NITRITE NEGATIVE (NEGATIVE); URINE PROTEIN NEGATIVE (NEGATIVE)
[2017-05-06] MEDS: TAMSULOSIN HCL 0.4 MG CAP.ER.24H (FP) PO SCH (08:01)
[2017-05-06] MEDS: NICOTINE 14 MG/24 HOURS TOPICAL PATCH TD SCH (09:50)
[2017-05-06] MEDS: amLODIPine BESYLATE 10 MG TABLET (FP) PO SCH (09:50)
[2017-05-06] MEDS: PRENATAL VITAMINS W/ FOLIC ACID TABLET (FP) PO SCH (09:50)
[2017-05-06] MEDS: BENZTROPINE MESYLATE 1 MG TABLET (FP) PO SCH ×2 (09:50→21:21)
[2017-05-06 10:40] LABS: HEMATOCRIT 36.2 % (35.4-49); HEMOGLOBIN 12.1 GM/dL (11.7-16.9); MCH 29.7 pg (25.7-33.7); MCHC 33.5 g/dl (32.0-35.9); MEAN CELL VOLUME 88.8 fl (80-96); MEAN PLT VOLUME 7.7 fl (7.5-11.1); PLATELET COUNT 227 K/MM3 (134-434); RBC 4.07 M/mm3 (4.00-5.60); RDW 14.3 % (11.9-15.9); WHITE BLOOD COUNT 5.6 K/mm3 (4.0-10.0)
[2017-05-06] MEDS: VALSARTAN 160 MG TABLET (UD) PO SCH (11:00)
[2017-05-06 11:20] LABS: ALBUMIN 3.1 g/dl (3.4-5.0); ALK PHOS 82 U/L (45-117); ANION GAP 4 (8-16); BILIRUBIN,TOTAL 0.2 mg/dL (0.2-1.0); BLOOD UREA NITROGEN 15 mg/dL (7-18); CALCIUM 8.3 mg/dL (8.5-10.1); CHLORIDE 110 mmol/L (98-107); CO2 29 mmol/L (21-32); GLUCOSE,RANDOM 95 mg/dL (74-106); POTASSIUM 4.3 mmol/L (3.5-5.1); SGOT/AST 13 U/L (15-37); SGPT/ALT 14 U/L (12-78); SODIUM 143 mmol/L (136-145); TOT PROT 5.9 g/dl (6.4-8.2)
--- NOTE | 2017-05-06 16:46 | EKG ---
Test Reason : Blood Pressure : / mmHG Vent. Rate : 081 BPM Atrial Rate : 081 BPM P-R Int : 156 ms QRS Dur : 076 ms QT Int : 366 ms P-R-T Axes : 079 073 072 degrees QTc Int : 425 ms NORMAL SINUS RHYTHM NORMAL ECG WHEN COMPARED WITH ECG OF 06-FEB-2017 22:29, NO SIGNIFICANT CHANGE WAS FOUND Confirmed by LISA MARINELLI MD ([id number]) on 05/06/2017 4:45:52 PM Referred By: Confirmed By:LISA MARINELLI MD
[2017-05-06] MEDS: THIAMINE HCL 100 MG TABLET (FP) PO SCH (21:21)
[2017-05-06] MEDS: diphenhydrAMINE HCL 25 MG CAPSULE (FP) PO SCH (21:21)
[2017-05-07] MEDS: TAMSULOSIN HCL 0.4 MG CAP.ER.24H (FP) PO SCH (09:30)
[2017-05-07] MEDS: PRENATAL VITAMINS W/ FOLIC ACID TABLET (FP) PO SCH (09:31)
[2017-05-07] MEDS: BENZTROPINE MESYLATE 1 MG TABLET (FP) PO SCH ×2 (09:31→21:19)
[2017-05-07] MEDS: amLODIPine BESYLATE 10 MG TABLET (FP) PO SCH (09:31)
[2017-05-07] MEDS: NICOTINE 14 MG/24 HOURS TOPICAL PATCH TD SCH (09:31)
[2017-05-07] MEDS: VALSARTAN 160 MG TABLET (UD) PO SCH (09:32)
[2017-05-07] MEDS: diphenhydrAMINE HCL 25 MG CAPSULE (FP) PO SCH (21:19)
[2017-05-07] MEDS: THIAMINE HCL 100 MG TABLET (FP) PO SCH (21:19)
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
[2017-05-08] MEDS: TAMSULOSIN HCL 0.4 MG CAP.ER.24H (FP) PO SCH (08:50)
[2017-05-08] MEDS: amLODIPine BESYLATE 10 MG TABLET (FP) PO SCH (09:50)
[2017-05-08] MEDS: PRENATAL VITAMINS W/ FOLIC ACID TABLET (FP) PO SCH (09:51)
[2017-05-08] MEDS: BENZTROPINE MESYLATE 1 MG TABLET (FP) PO SCH ×2 (09:51→21:15)
[2017-05-08] MEDS: VALSARTAN 160 MG TABLET (UD) PO SCH (09:51)
[2017-05-08] MEDS: NICOTINE 14 MG/24 HOURS TOPICAL PATCH TD SCH (09:51)
[2017-05-08] MEDS: guaiFENesin/D-METHORPHAN HB 10 ML UNIT-DOSE CUPS PO PRN (20:04)
[2017-05-08] MEDS: diphenhydrAMINE HCL 25 MG CAPSULE (FP) PO SCH (21:15)
[2017-05-08] MEDS: THIAMINE HCL 100 MG TABLET (FP) PO SCH (21:15)
[2017-05-09] MEDS: TAMSULOSIN HCL 0.4 MG CAP.ER.24H (FP) PO SCH (07:36)
[2017-05-09] MEDS: BENZTROPINE MESYLATE 1 MG TABLET (FP) PO SCH ×2 (10:19→21:28)
[2017-05-09] MEDS: amLODIPine BESYLATE 10 MG TABLET (FP) PO SCH (10:20)
[2017-05-09] MEDS: NICOTINE 14 MG/24 HOURS TOPICAL PATCH TD SCH (10:20)
[2017-05-09] MEDS: PRENATAL VITAMINS W/ FOLIC ACID TABLET (FP) PO SCH (10:21)
[2017-05-09] MEDS: VALSARTAN 160 MG TABLET (UD) PO SCH (10:22)
--- NOTE | 2017-05-09 14:18 | PN ---
[facility] Progress Note Note: Mr.Ronald Kolb LEAN MANAGER from [facility]([phone]) called and verified that patient's injection Prolixin Decanoate 50 mg IM is due on 05/12(q 2 weeks).
[2017-05-09] MEDS: THIAMINE HCL 100 MG TABLET (FP) PO SCH (21:28)
[2017-05-09] MEDS: diphenhydrAMINE HCL 50 MG CAPSULE PO PRN (21:28)
[2017-05-10] MEDS: TAMSULOSIN HCL 0.4 MG CAP.ER.24H (FP) PO SCH (09:00)
[2017-05-10] MEDS: amLODIPine BESYLATE 10 MG TABLET (FP) PO SCH (10:16)
[2017-05-10] MEDS: VALSARTAN 160 MG TABLET (UD) PO SCH (10:16)
[2017-05-10] MEDS: BENZTROPINE MESYLATE 1 MG TABLET (FP) PO SCH ×2 (10:16→21:26)
[2017-05-10] MEDS: PRENATAL VITAMINS W/ FOLIC ACID TABLET (FP) PO SCH (10:16)
[2017-05-10] MEDS: NICOTINE 14 MG/24 HOURS TOPICAL PATCH TD SCH (10:17)
[2017-05-10] MEDS: THIAMINE HCL 100 MG TABLET (FP) PO SCH (21:27)
[2017-05-10] MEDS: diphenhydrAMINE HCL 50 MG CAPSULE PO PRN (21:28)
[2017-05-11] MEDS: TAMSULOSIN HCL 0.4 MG CAP.ER.24H (FP) PO SCH (09:06)
[2017-05-11] MEDS: VALSARTAN 160 MG TABLET (UD) PO SCH (10:06)
[2017-05-11] MEDS: PRENATAL VITAMINS W/ FOLIC ACID TABLET (FP) PO SCH (10:06)
[2017-05-11] MEDS: BENZTROPINE MESYLATE 1 MG TABLET (FP) PO SCH ×2 (10:06→21:23)
[2017-05-11] MEDS: amLODIPine BESYLATE 10 MG TABLET (FP) PO SCH (10:06)
[2017-05-11] MEDS: NICOTINE 14 MG/24 HOURS TOPICAL PATCH TD SCH (10:08)
[2017-05-11] MEDS: THIAMINE HCL 100 MG TABLET (FP) PO SCH (21:23)
[2017-05-11] MEDS: diphenhydrAMINE HCL 50 MG CAPSULE PO PRN (21:24)
[2017-05-11] MEDS: guaiFENesin/D-METHORPHAN HB 10 ML UNIT-DOSE CUPS PO PRN (21:24)
[2017-05-12] MEDS: TAMSULOSIN HCL 0.4 MG CAP.ER.24H (FP) PO SCH (07:50)
[2017-05-12] MEDS: VALSARTAN 160 MG TABLET (UD) PO SCH (09:56)
[2017-05-12] MEDS: amLODIPine BESYLATE 10 MG TABLET (FP) PO SCH (09:56)
[2017-05-12] MEDS: BENZTROPINE MESYLATE 1 MG TABLET (FP) PO SCH ×2 (09:56→21:21)
[2017-05-12] MEDS: PRENATAL VITAMINS W/ FOLIC ACID TABLET (FP) PO SCH (09:57)
[2017-05-12] MEDS: NICOTINE 14 MG/24 HOURS TOPICAL PATCH TD SCH (09:57)
[2017-05-12] MEDS ORDERED: fluPHENAZine DECANOATE 125 MG/5ML VIAL IM ONE (10:00)
[2017-05-12] MEDS: diphenhydrAMINE HCL 50 MG CAPSULE PO PRN (18:21)
[2017-05-12] MEDS: THIAMINE HCL 100 MG TABLET (FP) PO SCH (21:21)
[2017-05-13] MEDS: TAMSULOSIN HCL 0.4 MG CAP.ER.24H (FP) PO SCH (07:42)
[2017-05-13] MEDS: BENZTROPINE MESYLATE 1 MG TABLET (FP) PO SCH ×2 (10:05→21:12)
[2017-05-13] MEDS: NICOTINE 14 MG/24 HOURS TOPICAL PATCH TD SCH (10:05)
[2017-05-13] MEDS: VALSARTAN 160 MG TABLET (UD) PO SCH (10:05)
[2017-05-13] MEDS: amLODIPine BESYLATE 10 MG TABLET (FP) PO SCH (10:05)
[2017-05-13] MEDS: PRENATAL VITAMINS W/ FOLIC ACID TABLET (FP) PO SCH (10:05)
[2017-05-13] MEDS: diphenhydrAMINE HCL 50 MG CAPSULE PO PRN (20:48)
[2017-05-13] MEDS: THIAMINE HCL 100 MG TABLET (FP) PO SCH (21:12)
[2017-05-14] MEDS: TAMSULOSIN HCL 0.4 MG CAP.ER.24H (FP) PO SCH (08:45)
[2017-05-14] MEDS: VALSARTAN 160 MG TABLET (UD) PO SCH (09:46)
[2017-05-14] MEDS: PRENATAL VITAMINS W/ FOLIC ACID TABLET (FP) PO SCH (09:46)
[2017-05-14] MEDS: BENZTROPINE MESYLATE 1 MG TABLET (FP) PO SCH ×2 (09:47→21:12)
[2017-05-14] MEDS: amLODIPine BESYLATE 10 MG TABLET (FP) PO SCH (09:47)
[2017-05-14] MEDS: NICOTINE 14 MG/24 HOURS TOPICAL PATCH TD SCH (09:48)
[2017-05-14] MEDS: THIAMINE HCL 100 MG TABLET (FP) PO SCH (21:12)
[2017-05-14] MEDS: diphenhydrAMINE HCL 50 MG CAPSULE PO PRN (21:13)
[2017-05-15] MEDS: TAMSULOSIN HCL 0.4 MG CAP.ER.24H (FP) PO SCH (07:43)
[2017-05-15] MEDS: BENZTROPINE MESYLATE 1 MG TABLET (FP) PO SCH ×2 (10:12→21:26)
[2017-05-15] MEDS: VALSARTAN 160 MG TABLET (UD) PO SCH (10:12)
[2017-05-15] MEDS: PRENATAL VITAMINS W/ FOLIC ACID TABLET (FP) PO SCH (10:12)
[2017-05-15] MEDS: amLODIPine BESYLATE 10 MG TABLET (FP) PO SCH (10:13)
[2017-05-15] MEDS: NICOTINE 14 MG/24 HOURS TOPICAL PATCH TD SCH (10:13)
[2017-05-15] MEDS: THIAMINE HCL 100 MG TABLET (FP) PO SCH (21:26)
[2017-05-15] MEDS: diphenhydrAMINE HCL 50 MG CAPSULE PO PRN (21:27)
[2017-05-16] MEDS: TAMSULOSIN HCL 0.4 MG CAP.ER.24H (FP) PO SCH (08:40)
[2017-05-16] MEDS: VALSARTAN 160 MG TABLET (UD) PO SCH (10:01)
[2017-05-16] MEDS: PRENATAL VITAMINS W/ FOLIC ACID TABLET (FP) PO SCH (10:01)
[2017-05-16] MEDS: BENZTROPINE MESYLATE 1 MG TABLET (FP) PO SCH ×2 (10:01→21:23)
[2017-05-16] MEDS: amLODIPine BESYLATE 10 MG TABLET (FP) PO SCH (10:01)
[2017-05-16] MEDS: NICOTINE 14 MG/24 HOURS TOPICAL PATCH TD SCH (10:02)
[2017-05-16] MEDS: diphenhydrAMINE HCL 50 MG CAPSULE PO PRN (21:23)
[2017-05-16] MEDS: THIAMINE HCL 100 MG TABLET (FP) PO SCH (21:23)
[2017-05-17] MEDS: TAMSULOSIN HCL 0.4 MG CAP.ER.24H (FP) PO SCH (08:45)
[2017-05-17] MEDS: VALSARTAN 160 MG TABLET (UD) PO SCH (10:16)
[2017-05-17] MEDS: PRENATAL VITAMINS W/ FOLIC ACID TABLET (FP) PO SCH (10:16)
[2017-05-17] MEDS: amLODIPine BESYLATE 10 MG TABLET (FP) PO SCH (10:16)
[2017-05-17] MEDS: BENZTROPINE MESYLATE 1 MG TABLET (FP) PO SCH ×2 (10:17→21:23)
[2017-05-17] MEDS: NICOTINE 14 MG/24 HOURS TOPICAL PATCH TD SCH (10:17)
[2017-05-17] MEDS: IBUPROFEN 400 MG TABLET (FP) PO PRN (10:18)
[2017-05-17] MEDS: THIAMINE HCL 100 MG TABLET (FP) PO SCH (21:23)
[2017-05-17] MEDS: diphenhydrAMINE HCL 50 MG CAPSULE PO PRN (21:23)
[2017-05-18] MEDS: IBUPROFEN 400 MG TABLET (FP) PO PRN (00:11)
[2017-05-18] MEDS: TAMSULOSIN HCL 0.4 MG CAP.ER.24H (FP) PO SCH (07:32)
[2017-05-18] MEDS: PRENATAL VITAMINS W/ FOLIC ACID TABLET (FP) PO SCH (10:04)
[2017-05-18] MEDS: BENZTROPINE MESYLATE 1 MG TABLET (FP) PO SCH ×2 (10:04→21:34)
[2017-05-18] MEDS: NICOTINE 14 MG/24 HOURS TOPICAL PATCH TD SCH (10:04)
[2017-05-18] MEDS: VALSARTAN 160 MG TABLET (UD) PO SCH (10:04)
[2017-05-18] MEDS: amLODIPine BESYLATE 10 MG TABLET (FP) PO SCH (10:04)
[2017-05-18] MEDS: diphenhydrAMINE HCL 50 MG CAPSULE PO PRN (21:34)
[2017-05-18] MEDS: THIAMINE HCL 100 MG TABLET (FP) PO SCH (21:34)
[2017-05-19] MEDS: TAMSULOSIN HCL 0.4 MG CAP.ER.24H (FP) PO SCH (08:55)
[2017-05-19] MEDS: PRENATAL VITAMINS W/ FOLIC ACID TABLET (FP) PO SCH (10:03)
[2017-05-19] MEDS: BENZTROPINE MESYLATE 1 MG TABLET (FP) PO SCH ×2 (10:04→21:18)
[2017-05-19] MEDS: VALSARTAN 160 MG TABLET (UD) PO SCH (10:04)
[2017-05-19] MEDS: amLODIPine BESYLATE 10 MG TABLET (FP) PO SCH (10:05)
[2017-05-19] MEDS: NICOTINE 14 MG/24 HOURS TOPICAL PATCH TD SCH (10:05)
[2017-05-19] MEDS: THIAMINE HCL 100 MG TABLET (FP) PO SCH (21:18)
[2017-05-19] MEDS: diphenhydrAMINE HCL 50 MG CAPSULE PO PRN (21:18)
[2017-05-20] MEDS: VALSARTAN 160 MG TABLET (UD) PO SCH (10:07)
[2017-05-20] MEDS: BENZTROPINE MESYLATE 1 MG TABLET (FP) PO SCH ×2 (10:07→21:22)
[2017-05-20] MEDS: TAMSULOSIN HCL 0.4 MG CAP.ER.24H (FP) PO SCH (10:07)
[2017-05-20] MEDS: amLODIPine BESYLATE 10 MG TABLET (FP) PO SCH (10:07)
[2017-05-20] MEDS: PRENATAL VITAMINS W/ FOLIC ACID TABLET (FP) PO SCH (10:07)
[2017-05-20] MEDS: NICOTINE 14 MG/24 HOURS TOPICAL PATCH TD SCH (10:08)
[2017-05-20] MEDS: diphenhydrAMINE HCL 50 MG CAPSULE PO PRN (21:21)
[2017-05-20] MEDS: THIAMINE HCL 100 MG TABLET (FP) PO SCH (21:21)
[2017-05-21] MEDS: TAMSULOSIN HCL 0.4 MG CAP.ER.24H (FP) PO SCH (07:34)
[2017-05-21] MEDS: NICOTINE 14 MG/24 HOURS TOPICAL PATCH TD SCH (09:58)
[2017-05-21] MEDS: BENZTROPINE MESYLATE 1 MG TABLET (FP) PO SCH ×2 (09:58→21:13)
[2017-05-21] MEDS: VALSARTAN 160 MG TABLET (UD) PO SCH (09:58)
[2017-05-21] MEDS: PRENATAL VITAMINS W/ FOLIC ACID TABLET (FP) PO SCH (09:58)
[2017-05-21] MEDS: amLODIPine BESYLATE 10 MG TABLET (FP) PO SCH (09:59)
[2017-05-21] MEDS: diphenhydrAMINE HCL 50 MG CAPSULE PO PRN (21:13)
[2017-05-21] MEDS: THIAMINE HCL 100 MG TABLET (FP) PO SCH (21:13)
[2017-05-22] MEDS: TAMSULOSIN HCL 0.4 MG CAP.ER.24H (FP) PO SCH (09:30)
[2017-05-22] MEDS: NICOTINE 14 MG/24 HOURS TOPICAL PATCH TD SCH (10:14)
[2017-05-22] MEDS: VALSARTAN 160 MG TABLET (UD) PO SCH (10:14)
[2017-05-22] MEDS: amLODIPine BESYLATE 10 MG TABLET (FP) PO SCH (10:14)
[2017-05-22] MEDS: PRENATAL VITAMINS W/ FOLIC ACID TABLET (FP) PO SCH (10:14)
[2017-05-22] MEDS: BENZTROPINE MESYLATE 1 MG TABLET (FP) PO SCH ×2 (10:15→21:23)
[2017-05-22] MEDS: diphenhydrAMINE HCL 50 MG CAPSULE PO PRN (21:23)
[2017-05-22] MEDS: THIAMINE HCL 100 MG TABLET (FP) PO SCH (21:23)
[2017-05-23] MEDS: TAMSULOSIN HCL 0.4 MG CAP.ER.24H (FP) PO SCH (07:57)
[2017-05-23] MEDS: amLODIPine BESYLATE 10 MG TABLET (FP) PO SCH (10:05)
[2017-05-23] MEDS: VALSARTAN 160 MG TABLET (UD) PO SCH (10:05)
[2017-05-23] MEDS: BENZTROPINE MESYLATE 1 MG TABLET (FP) PO SCH ×2 (10:05→21:17)
[2017-05-23] MEDS: PRENATAL VITAMINS W/ FOLIC ACID TABLET (FP) PO SCH (10:05)
[2017-05-23] MEDS: NICOTINE 14 MG/24 HOURS TOPICAL PATCH TD SCH (10:06)
[2017-05-23] MEDS: THIAMINE HCL 100 MG TABLET (FP) PO SCH (21:17)
[2017-05-23] MEDS: diphenhydrAMINE HCL 50 MG CAPSULE PO PRN (21:17)
[2017-05-24] MEDS: TAMSULOSIN HCL 0.4 MG CAP.ER.24H (FP) PO SCH (09:00)
[2017-05-24] MEDS: amLODIPine BESYLATE 10 MG TABLET (FP) PO SCH (10:18)
[2017-05-24] MEDS: PRENATAL VITAMINS W/ FOLIC ACID TABLET (FP) PO SCH (10:18)
[2017-05-24] MEDS: BENZTROPINE MESYLATE 1 MG TABLET (FP) PO SCH ×2 (10:18→21:23)
[2017-05-24] MEDS: VALSARTAN 160 MG TABLET (UD) PO SCH (10:18)
[2017-05-24] MEDS: NICOTINE 14 MG/24 HOURS TOPICAL PATCH TD SCH (10:19)
[2017-05-24] MEDS: diphenhydrAMINE HCL 50 MG CAPSULE PO PRN (21:23)
[2017-05-24] MEDS: THIAMINE HCL 100 MG TABLET (FP) PO SCH (21:23)
[2017-05-25] MEDS: amLODIPine BESYLATE 10 MG TABLET (FP) PO SCH (10:06)
[2017-05-25] MEDS: TAMSULOSIN HCL 0.4 MG CAP.ER.24H (FP) PO SCH (10:07)
[2017-05-25] MEDS: PRENATAL VITAMINS W/ FOLIC ACID TABLET (FP) PO SCH (10:07)
[2017-05-25] MEDS: BENZTROPINE MESYLATE 1 MG TABLET (FP) PO SCH ×2 (10:07→21:56)
[2017-05-25] MEDS: VALSARTAN 160 MG TABLET (UD) PO SCH (10:07)
[2017-05-25] MEDS: NICOTINE 14 MG/24 HOURS TOPICAL PATCH TD SCH (10:08)
--- NOTE | 2017-05-25 12:08 | PN ---
Psychiatric Progress Note Vital Signs: Vital Signs Period Temp Pulse Resp BP Sys/Davis Pulse Ox Last 24 Hr 97.4 F 83 16-18 137/93 Date of Session: 05/25/17 Chief Complaint:: discharge visit HPI: Patient is addressing cocaine, nicotine and alcohol use comorbid Schizophrenia. ROS: BPH, HTN medically managed. Current Medications: Active Medications Generic Name Dose Route Start Last Admin Trade Name Freq PRN Reason Stop Dose Admin Acetaminophen 650 mg 05/05/17 16:31 Tylenol - PO Q4H PRN FEVER Al Hydroxide/Mg Hydroxide 30 ml 05/05/17 16:31 Mylanta Oral Suspension - PO Q6H PRN DYSPEPSIA Amlodipine Besylate 10 mg 05/06/17 10:00 05/25/17 10:06 Norvasc - PO 10 mg DAILY DIANA Administration Benztropine Mesylate 1 mg 05/05/17 22:00 05/25/17 10:07 Cogentin - PO 1 mg BID DIANA Administration Diphenhydramine HCl 50 mg 05/09/17 14:11 05/24/17 21:23 Benadryl - PO 50 mg Q6H PRN Administration MUSCLE SPASMS Eucalyptus/Menthol/Phenol/Sorbitol 1 each 05/05/17 16:31 Cepastat Lozenge - MM Q4H PRN SORE THROAT Fluphenazine Decanoate 50 mg 05/25/17 18:00 Prolixin Decanoate (Long-Acting Injection) - IM 05/25/17 18:01 ONCE ONE Guaifenesin 10 ml 05/05/17 16:31 05/11/17 21:24 Robitussin Dm - PO 10 ml Q6H PRN Administration COUGH Ibuprofen 400 mg 05/05/17 16:31 05/18/17 00:11 Motrin - PO 400 mg Q6H PRN Administration Pain level 4-6 Loperamide HCl 4 mg 05/05/17 16:31 Imodium - PO Q6H PRN DIARRHEA Magnesium Citrate 300 ml 05/05/17 16:31 Citroma - PO Q48H PRN CONSTIPATION Magnesium Hydroxide 30 ml 05/05/17 16:31 Milk Of Magnesia - PO DAILY PRN CONSTIPATION Nicotine 14 mg 05/06/17 10:00 05/25/17 10:08 Nicoderm Patch - TD 14 mg DAILY DIANA Administration Nicotine Polacrilex 2 mg 05/05/17 16:31 Nicorette Gum - BUC Q2H PRN NICOTINE REPLACEMENT RX Multivit/Folic Acid/Iron 1 tab 05/06/17 10:00 05/25/17 10:07 Vitamins (Sjr) - PO 1 tab DAILY DIANA Administration Tamsulosin HCl 0.4 mg 05/06/17 08:30 05/25/17 10:07 Flomax - PO 0.4 mg DAILY@0830 DIANA Administration Thiamine HCl 100 mg 05/05/17 22:00 05/24/17 21:23 Vitamin B1 - PO 100 mg HS DIANA Administration Valsartan 160 mg 05/06/17 10:00 05/25/17 10:07 Diovan - PO 160 mg DAILY DIANA Administration Current Side Effect: No Lab tests ordered: No Lab tests reviewed: Yes Provider note:: Patient was seen today, he will complete his treatment and meet his goals on 05/25/17, he will continue to address his issues at [facility] treatment program and will f/u for his psychiatric issues at [facility] in [facility]. He verbalized understanding of importance to continue maintain abstinence and and motivated to continue his abstinence. He is currently on Prolixin Decanoate injection and it is due today , order for 50 mg IM placed, patient was made aware and he was encouraged to take medications as indicated and to f/u with his medical appointments, patient is stable for discharge tomorrow 05/26/17. Total face to face time:: 25 Mental Status Exam - Mental Status Exam Alert and Oriented to: Time, Place, Person Cognitive Function: Grossly Intact Patient Appearance: Well Groomed Mood: Anxious, Hopeful Affect: Appropriate, Mood Congruent Patient Behavior: Appropriate, Cooperative Speech Pattern: Appropriate Voice Loudness: Normal Thought Process: Intact, Goal Oriented Hallucinations: Denies Suicidal Ideation: Denies Homicidal Ideation: Denies Insight/Judgement: Fair Sleep: Fair Appetite: Good Muscle strength/Tone: Normal Gait/Station: Normal Psychiatric Treatment Plan - Problem List (1) Alcohol abuse Current Visit: Yes (2) Cocaine dependence Current Visit: Yes (3) BPH (benign prostatic hyperplasia) Current Visit: Yes Qualifiers: Lower urinary tract symptom presence: symptoms absent Qualified Code(s): N40.0 - Benign prostatic hyperplasia without lower urinary tract symptoms (4) Hypertension Current Visit: Yes Qualifiers: Hypertension type: essential hypertension Qualified Code(s): I10 - Essential (primary) hypertension (5) Nicotine dependence Current Visit: Yes Qualifiers: Nicotine product type: cigarettes Substance use status: in withdrawal Qualified Code(s): F17.213 - Nicotine dependence, cigarettes, with withdrawal (6) Schizophrenia Current Visit: No Qualifiers: Schizophrenia type: other Qualified Code(s): F20.89 - Other schizophrenia
[2017-05-25] MEDS ORDERED: fluPHENAZine DECANOATE 125 MG/5ML VIAL IM ONE (18:00)
[2017-05-25] MEDS: diphenhydrAMINE HCL 50 MG CAPSULE PO PRN (19:48)
[2017-05-25] MEDS: THIAMINE HCL 100 MG TABLET (FP) PO SCH (21:56)
[2017-05-26 06:36] VITALS: BP 121/76; PULSE 78; TEMP 97.9
[2017-05-26] MEDS: BENZTROPINE MESYLATE 1 MG TABLET (FP) PO SCH (09:29)
[2017-05-26] MEDS: VALSARTAN 160 MG TABLET (UD) PO SCH (09:29)
[2017-05-26] MEDS: PRENATAL VITAMINS W/ FOLIC ACID TABLET (FP) PO SCH (09:29)
[2017-05-26] MEDS: TAMSULOSIN HCL 0.4 MG CAP.ER.24H (FP) PO SCH (09:29)
[2017-05-26] MEDS: amLODIPine BESYLATE 10 MG TABLET (FP) PO SCH (09:30)
[2017-05-26] MEDS: NICOTINE 14 MG/24 HOURS TOPICAL PATCH TD SCH (09:30)
== END 2017-05-26 11:10 | disposition home or self-care (01) | DRG 772 ==
LOC: YASAS 11:42 → Y5N 16:47
PROVIDERS: ADMIT Psychiatry & Neurology Psychiatry; ATTEND Psychiatry & Neurology Psychiatry
PROC: HZ42ZZZ Group Counseling for Substance Abuse Treatment, Cognitive-Behavioral (ICD-10-PCS; principal; 2017-05-05)
DX: F14.20 Cocaine dependence, uncomplicated (principal); F17.210 Nicotine dependence, cigarettes, uncomplicated; F20.89 Other schizophrenia; I10 Essential (primary) hypertension; N40.0 Benign prostatic hyperplasia without lower urinary tract symptoms
CPT/HCPCS: 36415; 80053; 81003; 85027; 86593; 93005; 93010